=== PATIENT | male | born 1970 | race Caucasian/White ===

== ENCOUNTER 2020-05-24 08:00 | Outpatient (CLI) | payer OTHER | END 2020-05-24 23:59 | disposition home or self-care (01) | LOC: LAB 08:00 | PROVIDERS: ATTEND Specialist | DX: Z01.812 Encounter for preprocedural laboratory examination (principal); Z20.828 Contact with and (suspected) exposure to other viral communicable diseases | CPT/HCPCS: 87426; C9803 ==

== ENCOUNTER 2020-05-27 05:32 | Day surgery (SDC) | payer OTHER ==
[~2020-05-27] VITALS: Ht 170.2 cm; Wt 73.6 kg
[2020-05-27 05:43] VITALS: BP 138/89
--- NOTE | 2020-05-27 05:43 | NUR ---
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 GARBER; PROCEDURE IS ANTERIOR CERVICAL DISECTOMY AND FUSION. PATIENT A/OX4. STABLE ON RA; NO S/S OF ACUTE RESPIRATORY DISTRESS; BREATHING IS EVEN AND UNLABORED. IV STARTED ON LEFT FA, SIZE 20, INTACT & PATENT, HEP LOCKED. BELONGINGS REVIEWED WITH PATIENT; PATIENT PREFERRED TO KEEP YELLOW RING INSIDE WALLET AND KEPT AT THE BEDSIDE DRAWER; NOTED IN BELONGINGS LIST AND PLACED IN CHART. MRSA SWAB COLLECTED AND SENT TO LAB. SAFETY MEASURES IN PLACE AND PATIENT'S NEEDS MET. WILL CONTINUE TO MONITOR.
[2020-05-27] MEDS ORDERED: ACETAMINOPHEN 325 MG TABLET PO ONE (06:00)
[2020-05-27] MEDS ORDERED: KETOROLAC TROMETHAMINE INJ 30 MG/ML VIAL IV ONE (06:00)
[2020-05-27] MEDS ORDERED: CELECOXIB 100 MG CAPSULE PO ONE (06:00)
[2020-05-27] MEDS ORDERED: GABAPENTIN 300 MG CAPSULE PO ONE (06:00)
[2020-05-27] MEDS ORDERED: oxyCODONE HCL SR 20MG TAB.SR.12H PO ONE (06:00)
--- NOTE | 2020-05-27 06:44 | NUR ---
MS RN NOTES ADMINISTERED PRE-OP MEDICATIONS PER DR. GARBER'S ORDERS
[2020-05-27] MEDS ORDERED: ANESTHESIA TRAY IN PYXIS 1 EA TRAY MC ONE (06:56)
[2020-05-27] MEDS ORDERED: LIDOCAINE HCL/MPF 1% 30 ML VIAL IJ ONE (07:05)
[2020-05-27] MEDS ORDERED: METHYLENE BLUE 10 ML VIAL ONE (07:05)
[2020-05-27] MEDS ORDERED: CEFAZOLIN 1 GM ONE (07:05)
[2020-05-27] MEDS ORDERED: BUPIVACAINE 0.5 % PF 150 MG/30 ML VIAL ONE (07:05)
[2020-05-27] MEDS ORDERED: FENTANYL PF 250MCG/5ML AMPUL ONE ×2 (07:07)
[2020-05-27] MEDS ORDERED: MIDAZOLAM HCL 2 MG/2ML VIAL ONE (07:07)
[2020-05-27] MEDS ORDERED: HYDROMORPHONE INJ 2 MG/ML DISP.SYRIN ONE (07:08)
[2020-05-27] MEDS ORDERED: FAMOTIDINE/PF INJ 20 MG/2 ML VIAL IV ONE (07:08)
[2020-05-27] MEDS ORDERED: SUCCINYLCHOLINE CHLORIDE 20 MG/ML VIAL ONE (07:09)
[2020-05-27] MEDS ORDERED: BUPIVACAINE MPF 0.5% W/EPI INJ 30 ML VIAL ONE (07:10)
[2020-05-27] MEDS ORDERED: HEMOSTATIC MATRIX 8 ML 1 EACH PAD MC ONE (07:10)
--- NOTE | 2020-05-27 07:10 | NUR ---
MS RN NOTES PATIENT TRANSFERRED TO OR FOR PROCEDURE. CONSENT FORMS VERIFIED.
[2020-05-27] MEDS ORDERED: MAGNESIUM HYDROXIDE 30 ML UDC PO PRN (07:30)
[2020-05-27] MEDS ORDERED: ACETAMINOPHEN 650 MG/20.3 ML UDC PO PRN (07:30)
[2020-05-27] MEDS ORDERED: ONDANSETRON HCL/PF 4 MG/2 ML VIAL IV PRN (07:30)
[2020-05-27] MEDS ORDERED: diphenhydrAMINE HCL 25 MG CAPSULE PO PRN (07:30)
[2020-05-27] MEDS ORDERED: LORAZEPAM 1 MG TABLET PO PRN (07:30)
[2020-05-27] MEDS ORDERED: HYDROCODONE/APAP 10/325MG TABLET PO PRN (07:30)
[2020-05-27] MEDS ORDERED: CLONIDINE HCL 0.1 MG TABLET PO PRN (07:30)
[2020-05-27] MEDS ORDERED: MAG HYDROX/AL HYDROX/SIMETH 30 ML UDC PO PRN (07:30)
[2020-05-27] MEDS ORDERED: HYDROMORPHONE 1 MG/1 ML DISP.SYRIN IM/IV/SC PRN (07:30)
[2020-05-27] MEDS ORDERED: MENTHOL/CETYLPYRD (CEPACOL) 1 LOZ LOZENGE PO PRN ×2 (07:30)
[2020-05-27] MEDS ORDERED: HYDROMORPHONE 1 MG/1 ML DISP.SYRIN SQ PRN (07:30)
--- NOTE | 2020-05-27 07:30 | NUR ---
ms rn patient currently at or right now for procedure.
--- NOTE | 2020-05-27 07:38 | NUR ---
MS RN NOTES PATIENT CURRENTLY IN OR. ENDORSED TO DAY SHIFT RN PLAN OF CARE.
[2020-05-27] MEDS: DOCUSATE SODIUM 100 MG CAPSULE PO SCH ×2 (09:00→17:23)
[2020-05-27] MEDS ORDERED: FAMOTIDINE (20 MG) 20 MG TABLET PO SCH (09:00)
[2020-05-27] MEDS ORDERED: ONDANSETRON HCL/PF 4 MG/2 ML VIAL IVP PRN (10:30)
[2020-05-27] MEDS ORDERED: HYDROMORPHONE INJ 2 MG/ML DISP.SYRIN IV PRN (10:30)
[2020-05-27] MEDS ORDERED: ACETAMINOPHEN 325 MG TABLET PO PRN (10:30)
[2020-05-27] MEDS ORDERED: oxyCODONE/APAP (5/325 MG) 1 UDTAB TABLET PO PRN (10:30)
--- NOTE | 2020-05-27 11:30 | NUR ---
ms rn patient came back from surgery, awake,alert,oriented x4,not in any form of distress, respirations even and unlabored,no sob noted, collar brace on,sx site clean and dry,all needs attended.
[2020-05-27 12:00] VITALS: BP 140/73
[2020-05-27] MEDS ORDERED: TAMSULOSIN 0.4 MG CAP.SR.24H PO SCH (12:00)
--- NOTE | 2020-05-27 12:00 | NUR ---
ms [employer]ons lunch served,tolerated well w/ no complain.
[2020-05-27 12:30] VITALS: BP 135/72
[2020-05-27 13:00] VITALS: BP 144/78
[2020-05-27] MEDS ORDERED: MENTHOL/CETYLPYRD (CEPACOL) 1 LOZ LOZENGE PO ONE (13:00)
[2020-05-27] MEDS ORDERED: PANTOPRAZOLE 40 MG TABLET.DR PO SCH (14:00)
[2020-05-27] MEDS ORDERED: ANCEF 1 GM/50 ML D5W IV SCH ×2 (15:00)
[2020-05-27] MEDS ORDERED: CEFAZOLIN 1 GM in IV NS 0.9% 50 ML IV SCH (15:00)
--- NOTE | 2020-05-27 17:00 | NUR ---
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
== END 2020-05-27 18:00 | disposition home or self-care (01) ==
LOC: DS 05:32 → MED 05:33 → UNDOADMIN 05:33 → MED 09:53 → UNDODISIN 17:30 → DS 18:00
PROVIDERS: ATTEND Specialist
DX: M54.12 Radiculopathy, cervical region (principal); M50.20 Other cervical disc displacement, unspecified cervical region; K21.9 Gastro-esophageal reflux disease without esophagitis; Z79.82 Long term (current) use of aspirin; Z79.899 Other long term (current) drug therapy
CPT/HCPCS: 22551; 22845; 22853; 71045; 72040; 87081; 93005; 97116; 97161; 97530; A6209; C1713 ×3; C1762; J0330 ×2; J0690 ×2; J1100; J1170; J1885; J2250; J2704; J2765; J3010 ×2; J3490 ×4; J7060; J7120; G0378; Q9968